=== PATIENT | female | born 1990 | race American Indian/Alaskan Native ===

== ENCOUNTER 2017-09-19 18:55 | Emergency (ER) | payer SELFPAY ==
--- NOTE | 2017-09-19 20:27 | C.PDOC ---
History Of Present Illness 26 year old female presents to the ED with the complaint of a sore throat for 2 days. Patient states she's 2 weeks and has lower pelvic pain. She denies vaginal discharge and vaginal bleeding. She wants to have her evaluated. Time Seen by Provider: 09/19/17 19:38 Chief Complaint (Nursing): Abdominal Pain History Per: Patient History/Exam Limitations: no limitations Onset/Duration Of Symptoms: Days Current Symptoms Are (Timing): Still Present Abnormal Vaginal Bleeding: No Past Medical History Reviewed: Historical Data, Nursing Documentation, Vital Signs Vital Signs: Last Vital Signs Temp 98.9 F 09/19/17 19:04 Pulse 70 09/19/17 19:04 Resp 16 09/19/17 19:04 BP 128/71 09/19/17 19:04 Pulse Ox 98 09/19/17 21:15 - Medical History PMH: Asthma Family History: States: No Known Family Hx - Social History Hx Tobacco Use: No Hx Alcohol Use: No Hx Substance Use: No - Immunization History Hx Tetanus Toxoid Vaccination: No Hx Influenza Vaccination: No Hx Pneumococcal Vaccination: No Review Of Systems Except As Marked, All Systems Reviewed And Found Negative. ENT: Positive for: Throat Pain Genitourinary: Positive for: Pelvic Pain. Negative for: Vaginal Discharge, Vaginal Bleeding Physical Exam - Physical Exam Appears: Non-toxic Skin: Normal Color, Warm Head: Atraumatic, Normacephalic Eye(s): bilateral: Normal Inspection, PERRL, EOMI Oral Mucosa: Moist Throat: Normal, No Erythema, No Exudate Neck: Normal, Supple Chest: Symmetrical Cardiovascular: Rhythm Regular, No Murmur Respiratory: Normal Breath Sounds, No Rales, No Rhonchi, No Wheezing Gastrointestinal/Abdominal: Soft, No Tenderness, Other (obese abdomen) Extremity: Normal ROM Extremity: Bilateral: Atraumatic, Normal Color And Temperature, Normal ROM Neurological/Psych: Oriented x3, Normal Speech ED Course And Treatment - Laboratory Results Result Diagrams: 09/19/17 20:23 09/19/17 20:23 Lab Interpretation: Abnormal (Q HCG 82,619H, O+,) Urine POC: Positive O2 Sat by Pulse Oximetry: 98 (RA) Pulse Ox Interpretation: Normal Medical Decision Making Medical Decision Making: IMPRESSION: Pelvic discomfort during --Type and Screen --Beta-HCG --CMP Panel --HCG --Urinalysis --US Transvaginal early IUP, no ectopic no UTI Disposition Doctor Will See Patient In The: Office Counseled Patient/Family Regarding: Studies Performed, Diagnosis - Disposition Disposition: HOME/ ROUTINE Disposition Time: 21:59 Condition: GOOD Forms: [facility] (Italian) - Clinical Impression Clinical Impression: - Scribe Statement The provider has reviewed the documentation as recorded by the Scribe (Haleigh Womack) Provider Attestation: All medical record entries made by the Scribe were at my direction and personally dictated by me. I have reviewed the chart and agree that the record accurately reflects my personal performance of the history, physical exam, medical decision making, and the department course for this patient. I have also personally directed, reviewed, and agree with the discharge instructions and disposition.
[2017-09-19 20:29] LABS: HCG,QUALITATIVE URINE POSITIVE (NEGATIVE)
[2017-09-19 20:30] LABS: SQUAMOUS EPITHIAL 3 /hpf (0-5); URINE BILIRUBIN NEGATIVE (NEGATIVE); URINE BLOOD NEGATIVE (NEGATIVE); URINE CLARITY Clear (Clear); URINE COLOR Yellow (YELLOW); URINE GLUCOSE (UA) NORMAL (Normal); URINE LEUKOCYTE ESTERASE NEG Leu/uL (Negative); URINE PROTEIN 1+ mg/dL (NEGATIVE); URINE UROBILINOGEN NORMAL mg/dL (0.2-1.0)
[2017-09-19 20:37] LABS: BASO % 0.3 % (0.0-2.0); EOS # 0.1 K/uL (0.0-0.7); EOS % 1.2 % (0.0-4.0); HEMOGLOBIN 12.4 g/dL (11.0-16.0); LYMPH # 1.4 K/uL (1.0-4.3); LYMPH % 11.5 % (20.0-40.0); MEAN CELL VOLUME 89.6 fL (81.0-99.0); MEAN CORPUSCULAR HEMOGLOBIN 30.1 pg (27.0-31.0); MEAN CORPUSCULAR HGB CONC 33.6 g/dL (33.0-37.0); MEAN PLATELET VOLUME 8.1 fL (7.2-11.7); MONO # 0.5 K/uL (0.0-0.8); MONO % 4.5 % (0.0-10.0); NEUT # 9.8 K/uL (1.8-7.0); NEUT % 82.5 % (50.0-75.0); RBC 4.14 Mil/uL (3.80-5.20); WHITE BLOOD COUNT 11.9 K/uL (4.8-10.8)
[2017-09-19 20:40] LABS: ALBUMIN 3.8 g/dL (3.5-5.0); ALT/SGPT 21 U/L (9-52); AST/SGOT 24 U/L (14-36); BLOOD UREA NITROGEN 6 mg/dL (7-17); CALCIUM 8.7 mg/dl (8.6-10.4); GFR AFRICAN-AMERICAN > 60; GFR NON-AFRICAN AMERICAN > 60
--- NOTE | 2017-09-19 21:53 | US ---
EXAM: US First Trimester, Transabdominal CLINICAL HISTORY: 26 years old, female; Pain; Other: Pelvic pain; Gestational age or lmp: 07-19-2017; ; Additional info: Pelvic pain, approx 8 weeks TECHNIQUE: Real-time transabdominal obstetrical ultrasound of the maternal pelvis and a first trimester with image documentation. COMPARISON: No relevant prior studies available. FINDINGS: Gestation: Single live intrauterine gestation. heart rate of 155 beats per minute. [place]-rump length of 1.4 cm, correlating with gestational age of 7 weeks 5 days. Uterus/cervix: No subchorionic hemorrhage. No cervical dilatation or effacement. Ovaries: Normal ovaries. No adnexal masses. Free fluid: No significant free fluid. IMPRESSION: 1. Single live intrauterine gestation.
[2017-09-19 22:18] VITALS: BP 165/90; PULSE 66; RESP 18; TEMP 97.9; O2SAT 100
== END 2017-09-19 22:20 | disposition home or self-care (01) ==
LOC: C.ER 18:55
DX: O26.891 Other specified pregnancy related conditions, first trimester (principal); Z3A.01 Less than 8 weeks gestation of pregnancy

== ENCOUNTER 2018-05-27 02:01 | Emergency (ER) | payer OTHER ==
[2018-05-27 02:14] VITALS: RESP 14; TEMP 98.3; O2SAT 96
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
[2018-05-27 03:55] VITALS: BP 130/80; PULSE 70
--- NOTE | 2018-05-27 10:39 | RAD ---
Date of service: 05/27/2018 PROCEDURE: Right Knee Radiographs. HISTORY: pain, twisted right knee COMPARISON: None. FINDINGS: BONES: Normal. No fracture. JOINTS: Normal. No osteoarthritis. JOINT EFFUSION: None. OTHER FINDINGS: None. IMPRESSION: Normal radiographs of the right knee.
== END 2018-05-27 03:55 | disposition home or self-care (01) ==
LOC: C.ER 02:01
DX: S83.91XA Sprain of unspecified site of right knee, initial encounter (principal); Y08.89XA Assault by other specified means, initial encounter

== ENCOUNTER 2018-09-13 16:20 | Emergency (ER) | payer SELFPAY ==
[2018-09-13 16:37] VITALS: O2SAT 99
[2018-09-13] MEDS ORDERED: Sodium Chloride 0.9% 1,000 ML IV ONE (16:38)
[2018-09-13] MEDS ORDERED: Sodium Chloride 0.9% 1,000 ML ONE (17:08)
[2018-09-13 17:13] LABS: BASO # 0.1 K/uL (0.0-0.2); EOS # 0.1 K/uL (0.0-0.7); EOS % 1.6 % (0.0-4.0); HEMOGLOBIN 13.4 g/dL (11.0-16.0); LYMPH # 1.4 K/uL (1.0-4.3); LYMPH % 18.7 % (20.0-40.0); MEAN CELL VOLUME 90.6 fL (81.0-99.0); MEAN CORPUSCULAR HEMOGLOBIN 31.3 pg (27.0-31.0); MEAN CORPUSCULAR HGB CONC 34.6 g/dL (33.0-37.0); MEAN PLATELET VOLUME 8.3 fL (7.2-11.7); MONO # 0.4 K/uL (0.0-0.8); MONO % 5.8 % (0.0-10.0); NEUT # 5.6 K/uL (1.8-7.0); NEUT % 72.9 % (50.0-75.0); NRBC % 0.1 % (0.0-2.0); RBC 4.28 Mil/uL (3.80-5.20); WHITE BLOOD COUNT 7.7 K/uL (4.8-10.8)
[2018-09-13 17:29] LABS: SQUAMOUS EPITHIAL < 1 /hpf (0-5); URINE BACTERIA RARE (<OCC); URINE BILIRUBIN NEGATIVE (NEGATIVE); URINE BLOOD NEGATIVE (NEGATIVE); URINE CLARITY Clear (Clear); URINE COLOR Yellow (YELLOW); URINE GLUCOSE (UA) NORMAL (Normal); URINE LEUKOCYTE ESTERASE NEG Leu/uL (Negative); URINE PROTEIN NEGATIVE (NEGATIVE); URINE UROBILINOGEN NORMAL mg/dL (0.2-1.0)
[2018-09-13 17:32] LABS: ALB/GLOB RATIO 1.3 (1.0-2.1); ALBUMIN 4.2 g/dL (3.5-5.0); ALT/SGPT 29 U/L (9-52); AST/SGOT 26 U/L (14-36); BLOOD UREA NITROGEN 11 mg/dL (7-17); CALCIUM 9.3 mg/dl (8.6-10.4); GFR NON-AFRICAN AMERICAN > 60; LIPASE 42 U/L (23-300)
[2018-09-13 17:37] LABS: HCG,QUALITATIVE URINE NEGATIVE (NEGATIVE)
--- NOTE | 2018-09-13 18:21 | C.PDOC ---
History Of Present Illness 27-year-old female presents to the emergency department with complaints of vomiting blood. Patient also reports min abdominal pain. Patient states that she vomited red blood two times today. Patient denies black stool, fever. Patient states that she is on Depo. Time Seen by Provider: 09/13/18 16:31 Chief Complaint (Nursing): Abdominal Pain History Per: Patient History/Exam Limitations: no limitations Onset/Duration Of Symptoms: Hrs Current Symptoms Are (Timing): Still Present Location Of Pain/Discomfort: Other (mid-abdomen) Quality Of Discomfort: "Pain" Associated Symptoms: Vomiting, Other (abdominal pain). denies: Fever, Chills, Nausea, Diarrhea Past Medical History Reviewed: Historical Data, Nursing Documentation, Vital Signs Vital Signs: Last Vital Signs Temp 98.5 F 09/13/18 16:30 Pulse 69 09/13/18 16:30 Resp BP 158/111 H 09/13/18 16:30 Pulse Ox 99 09/13/18 16:30 - Medical History PMH: Asthma, HTN, Hypercholesterolemia Surgical History: No Surg Hx Family History: States: No Known Family Hx - Social History Hx Tobacco Use: No Hx Alcohol Use: Yes Hx Substance Use: No - Immunization History Hx Tetanus Toxoid Vaccination: No Hx Influenza Vaccination: No Hx Pneumococcal Vaccination: No Review Of Systems Except As Marked, All Systems Reviewed And Found Negative. Constitutional: Negative for: Fever, Chills Respiratory: Negative for: Cough, Shortness of Breath Gastrointestinal: Positive for: Vomiting, Abdominal Pain, Hematemesis. Negative for: Nausea, Diarrhea, Hematochezia Physical Exam - Physical Exam Appears: Non-toxic, No Acute Distress Skin: Normal Color, Warm, Dry Head: Atraumatic, Normacephalic Eye(s): bilateral: Normal Inspection, PERRL, EOMI Nose: Normal Oral Mucosa: Moist Neck: Normal, Supple Chest: Symmetrical, No Tenderness Cardiovascular: Rhythm Regular, No Murmur Respiratory: Normal Breath Sounds, No Rales, No Rhonchi, No Wheezing Gastrointestinal/Abdominal: Soft, Tenderness (diffuse mid-abdominal tenderness), No Guarding, No Rebound Rectal: Heme Negative Extremity: Normal ROM Neurological/Psych: Oriented x3, Normal Speech, Normal Cognition ED Course And Treatment - Laboratory Results Result Diagrams: 09/13/18 17:03 09/13/18 17:03 Lab Results: Total Bilirubin 0.6 mg/dL (0.2-1.3) 09/13/18 17:03 AST 26 U/L (14-36) 09/13/18 17:03 ALT 29 U/L (9-52) 09/13/18 17:03 Alkaline Phosphatase 50 U/L (38-126) 09/13/18 17:03 Total Protein 7.5 g/dL (6.3-8.3) 09/13/18 17:03 Albumin 4.2 g/dL (3.5-5.0) 09/13/18 17:03 Globulin 3.3 gm/dL (2.2-3.9) 09/13/18 17:03 Albumin/Globulin Ratio 1.3 (1.0-2.1) 09/13/18 17:03 Lipase 42 U/L (23-300) 09/13/18 17:03 Urine Color Yellow (YELLOW) 09/13/18 17:15 Urine Clarity Clear (Clear) 09/13/18 17:15 Urine pH 5.0 (5.0-8.0) 09/13/18 17:15 Ur Specific [place] 1.021 (1.003-1.030) 09/13/18 17:15 Urine Protein Negative mg/dL (NEGATIVE) 09/13/18 17:15 Urine Glucose (UA) Normal mg/dL (Normal) 09/13/18 17:15 Urine Ketones Trace mg/dL (NEGATIVE) 09/13/18 17:15 Urine Blood Negative (NEGATIVE) 09/13/18 17:15 Urine Nitrate Negative (NEGATIVE) 09/13/18 17:15 Urine Bilirubin Negative (NEGATIVE) 09/13/18 17:15 Urine Urobilinogen Normal mg/dL (0.2-1.0) 09/13/18 17:15 Ur Leukocyte Esterase Neg Dwain/uL (Negative) 09/13/18 17:15 Urine WBC (Auto) 2 /hpf (0-5) 09/13/18 17:15 Urine RBC (Auto) 1 /hpf (0-3) 09/13/18 17:15 Ur Squamous Epith Cells < 1 /hpf (0-5) 09/13/18 17:15 Urine Bacteria Rare (<OCC) 09/13/18 17:15 Urine HCG, Qual Negative (NEGATIVE) 09/13/18 17:15 Urine HCG, Qual Negative (NEGATIVE) 09/13/18 17:15 O2 Sat by Pulse Oximetry: 99 (RA) Pulse Ox Interpretation: Normal - CT Scan/US CT Abdomen and Pelvis Other Rad Studies (CT/US): Read By Radiologist, Radiology Report Reviewed CT/US Interpretation: EXAM: CT Abdomen and Pelvis without IV contrast. CLINICAL HISTORY: PATIENT WITH MID ABDOMINAL PAINS 3 MOS BLEEDING, ON DEPO PROVERA HAS IN [place] NEG HCG. TECHNIQUE: Axial computed tomography images of the abdomen and pelvis without intravenous contrast. 0.00 mGy-cm. CONTRAST: Without. COMPARISON: None provided. FINDINGS: LUNG BASES: The lung bases appear clear. No pleural effusions are seen. LIVER: Unremarkable. GALLBLADDER AND BILE DUCTS: The gallbladder appears within normal limits. No radioopaque gallstones are seen. No biliary ductal dilatation is evident. PANCREAS: Unremarkable. SPLEEN: Unremarkable. ADRENAL GLANDS: Unremarkable. KIDNEYS, URETERS, AND BLADDER: There is an approximate 3 mm nonobstructing calculus at the upper midportion right kidney.. There is no hydronephrosis or hydroureter. No urinary calculi are seen. STOMACH AND BOWEL: Unremarkable appearance of the stomach and bowel. No evidence of bowel obstruction. No evidence suggesting enteritis or colitis. APPENDIX: No evidence of acute appendicitis on CT examination. PERITONEUM: No free fluid. No free air. LYMPH NODES: No lymphadenopathy is evident. REPRODUCTIVE: Unremarkable as visualized. VA SCULATURE: No evidence of abdominal aortic aneurysm. BONES: No aggressive appearing osseous lesion. No acute osseous pathology evident. IMPRESSION: No suspicious mass or lymphadenopathy. Approximate 3 mm nonobstructing calculus right kidney. Clinical correlation advised. Medical Decision Making Medical Decision Making: Plan: CT Abdomen and Pelvis Chemistry CBC Protonix 40mg IVP NaCl IV Fluids Zofran 4mg IVP HCG Qualitative Urine Urinalysis Disposition Counseled Patient/Family Regarding: Studies Performed, Diagnosis, Need For Followup, Rx Given - Disposition Referrals: Jair Haro MD [Staff Provider] - Disposition: HOME/ ROUTINE Disposition Time: 18:32 Condition: STABLE Prescriptions: Losartan/Hydrochlorothiazide [Losartan-Hctz 100-25 mg Tab] 1 each PO DAILY #15 tablet Ondansetron ODT [Zofran ODT] 4 mg PO TID #12 odt Pantoprazole Sodium [Protonix] 20 mg PO DAILY #14 ect Instructions: Gastrointestinal Bleeding Forms: [facility] (Lao), Work Excuse - Clinical Impression Clinical Impression: Upper GI bleeding - Scribe Statement The provider has reviewed the documentation as recorded by the Scribe (Earl Walker) Provider Attestation: All medical record entries made by the Scribe were at my direction and personally dictated by me. I have reviewed the chart and agree that the record accurately reflects my personal performance of the history, physical exam, medical decision making, and the department course for this patient. I have also personally directed, reviewed, and agree with the discharge instructions and disposition.
[2018-09-13 18:33] VITALS: BP 178/94; PULSE 54; RESP 18; TEMP 98.9
--- NOTE | 2018-09-14 08:48 | CT ---
Date of service: 09/13/2018 PROCEDURE: CT Abdomen and Pelvis without intravenous contrast HISTORY: Abdominal pain COMPARISON: None. TECHNIQUE: Multiple contiguous axial images were performed through the abdomen and pelvis without the use of intravenous contrast. Subsequently, sagittal and coronal reformatted images were obtained. Radiation dose: Total exam DLP = 882.13 mGy-cm. This CT exam was performed using one or more of the following dose reduction techniques: Automated exposure control, adjustment of the mA and/or kV according to patient size, and/or use of iterative reconstruction technique. FINDINGS: LOWER THORAX: Unremarkable. LIVER: Mild fatty infiltration of the liver. GALLBLADDER AND BILE DUCTS: Unremarkable. PANCREAS: Unremarkable. No gross lesion or ductal dilatation. SPLEEN: Unremarkable. ADRENALS: Unremarkable. No mass. KIDNEYS AND URETERS: Right kidney: Few punctate scattered echogenic calculi; for example, the largest of which is seen in the upper pole measuring 3 millimeters. No gross hydronephrosis. Left Kidney: No gross calculi or hydronephrosis. VASCULATURE: Unremarkable. No aortic aneurysm. No aortic atherosclerotic calcification or mural plaque present. BOWEL: Fecal retention in the colon. Under distended transverse colon. APPENDIX: Unremarkable. Normal appendix. PERITONEUM: Unremarkable. No free fluid. No free air. LYMPH NODES: Few shotty para-aortic and inguinal lymph nodes. BLADDER: Underdistended but otherwise grossly preserved. REPRODUCTIVE: Heterogeneous uterus and bilateral adnexa. BONES: Degenerative changes in the spine. OTHER FINDINGS: None. IMPRESSION: Punctate nonobstructive right renal calculi. Mild fatty infiltration of the liver. Additional findings as above. A preliminary report was generated at 6:19 p.m. on 09/13/[address] Kin Collado from [facility]
== END 2018-09-13 19:10 | disposition home or self-care (01) ==
LOC: C.ER 16:20
DX: K92.2 Gastrointestinal hemorrhage, unspecified (principal)
CPT/HCPCS: 74176; 80053; 81001; 83690; 84703; 85025; 96374; 96375; 99284; C9113; J2405; J7030